=== PATIENT | female | born 1960 ===

== ENCOUNTER 2018-02-13 13:22 | Emergency (ER) | payer MEDICAID, OTHER ==
[2018-02-13 13:54] VITALS: BP 149/93; PULSE 86; RESP 16; TEMP 98.8; O2SAT 96
--- NOTE | 2018-02-13 15:56 | ED PDOC ---
Upper Extremity Pain/Injury Time Seen by Provider: 02/13/18 15:12 Chief Complaint (Nursing): Upper Extremity Problem/Injury Chief Complaint (Provider): right shoulder pain History Per: Patient History/Exam Limitations: no limitations Onset/Duration Of Symptoms: Days (x2 months) Current Symptoms Are (Timing): Still Present Additional Complaint(s): Juarez Jones is a 57 year old female, with a past medical history of arthritis , who presents to the emergency department for evaluation of right shoulder pain onset for x2 months. Patient reports pain started after doing heavy lifting and states it worsens with ROM. She denies any other medical complaints. PMD: None provided. Past Medical History Reviewed: Historical Data, Nursing Documentation, Vital Signs Vital Signs: Last Vital Signs Temp 98.8 F 02/13/18 13:49 Pulse 86 02/13/18 13:49 Resp 16 02/13/18 13:49 BP 149/93 H 02/13/18 13:49 Pulse Ox 96 02/13/18 13:49 - Medical History PMH: Arthritis, Gastritis Denies: Chronic Kidney Disease - Surgical History Surgical History: No Surg Hx - Family History Family History: States: Unknown Family Hx - Home Medications Home Medications: Ambulatory Orders Medication Instructions Recorded Albuterol HFA [Ventolin HFA 90 2 puff IH [id number] PRN #1 inhaler 09/14/15 mcg/actuation (8 g)] Azithromycin [Zithromax] 1 tab PO DAILY #6 tablet 09/14/15 Promethazine DM [Phenergan DM 5 ml PO BID #100 ml 09/14/15 Syrup] Ibuprofen [Motrin Tab] 600 mg PO Q8 #15 tab 02/13/18 - Allergies Allergies/Adverse Reactions: Allergies Allergy/AdvReac Type Severity Reaction Status Date / Time No Known Allergies Allergy Verified 04/09/14 09:50 Review of Systems ROS Statement: Except As Marked, All Systems Reviewed And Found Negative Musculoskeletal: Positive for: Shoulder Pain (right) Physical Exam - Reviewed Nursing Documentation Reviewed: Yes Vital Signs Reviewed: Yes - Physical Exam Appears: Positive for: No Acute Distress Head Exam: Positive for: ATRAUMATIC, NORMOCEPHALIC Skin: Positive for: Normal Color, Warm, Dry Eye Exam: Positive for: Normal appearance Neck: Positive for: Painless ROM Respiratory: Negative for: Respiratory Distress Extremity: Positive for: Normal ROM (increased pain with full ROM), Tenderness ( mild tenderness over the anterior and lateral shoulder). Negative for: Deformity, Swelling Neurologic/Psych: Positive for: Alert, Oriented. Negative for: Motor/Sensory Deficits - ECG O2 Sat by Pulse Oximetry: 96 (RA) Pulse Ox Interpretation: Normal Medical Decision Making Medical Decision Making: Time: 15:12 Initial Impression: Left shoulder pain Initial Plan: --Motrin tab 600 mg PO --Shoulder right [RAD] --Reevaluation Scribe Attestation: Documented by Jorge Evans, acting as a scribe for Natividad Lin PA-C Provider Scribe Attestation: All medical record entries made by the Scribe were at my direction and personally dictated by me. I have reviewed the chart and agree that the record accurately reflects my personal performance of the history, physical exam, medical decision making, and the department course for this patient. I have also personally directed, reviewed, and agree with the discharge instructions and disposition. Disposition - Clinical Impression Clinical Impression: Shoulder pain, Shoulder injury - Patient ED Disposition Is Patient to be Admitted: No Doctor Will See Patient In The: Office Counseled Patient/Family Regarding: Studies Performed, Diagnosis - Disposition Referrals: Tenzin Marrero MD [Staff Provider] - Disposition: Routine/Home Disposition Time: 18:00 Condition: IMPROVED Prescriptions: Ibuprofen [Motrin Tab] 600 mg PO Q8 #15 tab Instructions: Shoulder Pain (DC) Forms: [employer] (Slovak)
--- NOTE | 2018-02-13 16:45 | RAD ---
Date of service: 02/13/2018 PROCEDURE: Radiographs of the Right Shoulder HISTORY: shoulder pain COMPARISON: No prior. FINDINGS: BONES: No fracture JOINTS: . Glenohumeral and acromioclavicular osteoarthritis. SOFT TISSUES: Normal. OTHER FINDINGS: Incidental cervical ribs are noted. IMPRESSION: Arthrosis right shoulder. No fracture. Other findings as above.
== END 2018-02-13 17:14 | disposition home or self-care (01) ==
LOC: H.ER 13:22
DX: M25.511 Pain in right shoulder (principal)